=== PATIENT | female | born 1950 | race Caucasian/White ===

== ENCOUNTER 2022-10-27 14:23 | Emergency (ER) | payer MEDICARE, OTHER, SELFPAY ==
[2022-10-27 14:39] VITALS: BP 134/70; PULSE 90; RESP 18; TEMP 37.4; O2SAT 95; BMI 27.8
[2022-10-27 15:26] LABS: Appearance Urine Clear (Clear); Bilirubin Urine Negative (Negative); Blood Urine 1+ (Negative); Color Urine Yellow (Yellow); Glucose Urine Negative (Negative); Ketones Urine 1+ (Negative); Leukocyte Esterase Urine Negative (Negative); Nitrite Urine Negative (Negative); Protein Urine Negative (Negative); Urobilinogen Urine 0.2 (0.2-1.0); pH Urine 5.5 (5.0-8.5)
--- NOTE | 2022-10-27 15:53 | ED.FEMALEGU ---
HPI - Female Genitourinary General Time Seen by Provider: 15:53 Date Seen: 10/27/22 Chief complaint: Urogenital Problems, Female Stated complaint: medication reaction/uti Time Seen by Provider: 10/27/22 15:37 Source: patient and RN notes reviewed Mode of arrival: ambulatory Limitations: no limitations History of Present Illness HPI Narrative: This 72-year-old female is coming in with concern of medication side effect an underlying UTI. Patient had a left hip replacement about a week and a half ago through [facility]. She went to [place] this weekend, traveled on Thursday, did get out of the car frequently to ambulate. She started having urinary symptoms with frequency of small amounts and some incontinence. She did not really have dysuria but could feel herself urinating more prominently than what it typically would feel like. She went to an urgent care in [place] yesterday, was given Macrobid/nitrofurantoin to take. She took it yesterday morning, took a dose yesterday evening and then started having severe nausea, did have vomiting. She is had times where she has felt chilled, has ongoing nausea, has had some headache. Has had poor oral intake today due to symptoms. She does not feel it is her pain medicine at all, took this for week and a half prior without any symptoms. She does not have any drug allergies. She is having no abdominal pain, no flank pain. Patient feels her hip is fine, no increased pain, no concerns. Related Data Home Medications Medication Instructions Recorded Confirmed Eliquis 10/27/22 Hydrocodone CP 10/27/22 Zoloft 10/27/22 nitrofurantoin 10/27/22 Previous Rx's Medication Instructions Recorded cephalexin 500 mg tablet 500 mg PO TID #21 tabs 10/27/22 Allergies Allergy/AdvReac Type Severity Reaction Status Date / Time No Known Drug Allergies Allergy Verified 10/27/22 14:44 Review of Systems Status of ROS: Reports: 6 or more systems reviewed and unremarkable except as noted in History and below Exam Const: Vital Signs, click to edit/add: Vital Signs - 24 hr 10/27/22 14:39 Temperature 99.4 F Pulse Rate [Pulse Oximeter] 90 Respiratory Rate 18 Blood Pressure [Ri ght Upper Arm] 134/70 Pulse Oximetry 95 Oxygen Delivery Me thod Room Air Very pleasant 72-year-old female looks like she does not feel well, is lying in the bed in exam room 5, has an emesis bag with her. She looks pale but is alert and interactive, very pleasant. Oropharynx with dry mucosa but no lesions noted. Sclera clear, conjugate gaze, equal pupils. Symmetrical facial function. Lungs are clear to auscultation bilaterally, no tachypnea and no wheezing or crackles. CV regular rate and rhythm no murmur, normal S1 and S2. Abdomen is soft, no rebound or guarding, no organomegaly. She has thickened lower extremities but no significant edema, they look symmetric. Documenting provider has reviewed patient's vital signs: yes Course Course Hospital Course: Patient did get a bladder scan after voiding and there is no evidence of any urinary retention. Urinalysis was appropriately collected by staff, awaiting lab evaluation. After seeing the patient, do think she needs blood work, will stab lotion IV. Did do worry that she has got a complicated UTI. Will consider other etiologies as well if needed. I will be getting blood cultures on her as well. Initiate Rocephin IV once labs collected for presumed UTI. Reevaluation(s) Time of Reevaluation #1: 18:09 Reevaluation #1: Patient was resting, upon awakening she actually states she is feeling a bit better. Her is now here. We reviewed her elevated white blood count. Her nausea is improved. We reviewed her lower potassium likely from decreased oral intake and vomiting. She does think she can take oral potassium. She did receive IV Rocephin. We discussed hospitalization with observation versus allowing her to go home. Her reports they live close, it sounds as if they would feel more comfortable going home which I think is reasonable. We will not have her take further nitrofurantoin, will initiate Keflex tomorrow. Will make sure she can take oral potassium here. Vital Signs Vital signs: Initial Vital Signs Temperature 99.4 F 10/27/22 14:39 Temperature Source Temporal Artery Scan 10/27/22 14:39 Pulse Rate 90 10/27/22 14:39 Respiratory Rate 18 10/27/22 14:39 Blood Pressure 134/70 10/27/22 14:39 Blood Pressure Mean 91 10/27/22 14:39 Blood Pressure Position Sitting 10/27/22 14:39 Pulse Oximetry 95 10/27/22 14:39 Oxygen Delivery Method Room Air 10/27/22 14:39 Vital Signs Temperature 99.4 F 10/27/22 14:39 Pulse Rate 90 10/27/22 14:39 Respiratory Rate 18 10/27/22 14:39 Blood Pressure 134/70 10/27/22 14:39 Pulse Oximetry 95 10/27/22 14:39 Oxygen Delivery Method Room Air 10/27/22 14:39 Temperature 99.4 F 10/27/22 14:39 Pulse Rate 90 10/27/22 14:39 Respiratory Rate 18 10/27/22 14:39 Blood Pressure 134/70 10/27/22 14:39 Pulse Oximetry 95 10/27/22 14:39 Oxygen Delivery Method Room Air 10/27/22 14:39 MDM - Female Genitourinary Lab Data Attestation: I reviewed the patient's lab results. Labs: Lab Results 10/27/22 10/27/22 Range/Units 15:20 16:25 WBC 15.24 H (4.50-11.00) K/uL RBC 3.22 L (4.00-5.20) m/uL Hgb 10.0 L (12.0-16.0) gm/dL Hct 30.4 L (33.0-51.0) % MCV 94 (80-100) fL MCH 31 (26-34) pg MCHC 33 (32-36) gm/dL RDW Coeff of Pilo 12.2 (11.5-15.5) % Plt Count 248 (140-440) K/uL Neut % (Auto) 93.3 H (42.0-72.0) % Lymph % (Auto) 3.3 L (20-44) % Coos % (Auto) 3.0 (0.0-11.0) % Eos % (Auto) 0.0 (0.0-7.0) % Baso % (Auto) 0.1 (0.0-3.0) % Neut # (Auto) 14.20 H (1.7-7.0) K/uL Lymph # (Auto) 0.50 L (0.90-2.90) K/uL Coos # (Auto) 0.50 (0.00-0.90) K/UL Eos # (Auto) 0.00 (0.00-0.50) K/uL Baso # (Auto) 0.00 (0.00-0.30) K/uL Abs Immat Gran (auto) 0.00 (0.00-0.30) K/uL Imm/Tot Granulo (auto) 0.3 % Sodium 135 (135-149) mmol/L Potassium 3.0 L (3.6-5.1) mmol/L Chloride 100 (96-114) mmol/L Carbon Dioxide 27 (20-32) mmol/L Anion Gap 8 (7-15) mEq/L BUN 15 (7-30) mg/dL Creatinine 0.6 (0.5-1.5) mg/dL Estimated Creat Clear 49.00 Estimated GFR 97 ml/min Glucose 117 H (60-115) mg/dL Lactate 1.3 (0.5-1.9) mmol/L Calcium 8.7 (8.4-10.6) mg/dL Total Bilirubin 1.1 (0.1-1.5) mg/dL AST 35 (12-35) U/L ALT 31 (4-35) U/L Alkaline Phosphatase 84 (40-150) U/L C-Reactive Protein 7.4 H (0.5-1.0) mg/dL Total Protein 7.2 (6.0-8.3) g/dL Albumin 3.8 (3.3-5.0) g/dL Urine Color Yellow (Yellow) Urine Appearance Clear (Clear) Urine pH 5.5 (5.0-8.5) Ur Specific [place] 1.020 (1.000-1.030) Urine Protein Negative (Negative) Urine Glucose (UA) Negative (Negative) Urine Ketones 1+ A (Negative) Urine Blood 1+ A (Negative) Urine Nitrite Negative (Negative) Urine Bilirubin Negative (Negative) Urine Urobilinogen 0.2 (0.2-1.0) Ur Leukocyte Esterase Negative (Negative) Urine RBC 0-2 (0-2) Urine WBC 5-10 A (0-5) Ur Squamous Epith Cells None (None-Few) Urine Bacteria Moderate A (None) Critical Care Time Critical Care Time Critical Care Time: No Discharge Plan Discharge Clinical Impression: Urinary tract infection, Medication adverse effect, Hypokalemia Patient Disposition: Home, Self-Care Condition: Stable Instructions: Potassium Content of Foods List (ED), Hypokalemia (ED), Urinary Tract Infection in Older Adults (ED) Additional Instructions: Start oral antibiotics in the morning, take as prescribed. Do not take any further nitrofurantoin, in prescribing a new antibiotic which will be Keflex or cephalexin. Drink small frequent sips of fluids to stay hydrated, also need to try to increase some potassium in your diet. If you do have further vomiting, develops abdominal pain, have fever or other new concerns, we do need you to be re-evaluated. Activity Detail: Follow activity recommendations and restrictions as per your surgeon. Prescriptions: New cephalexin 500 mg tablet 500 mg PO TID Qty: 21 0RF No Action Eliquis Zoloft Hydrocodone CP nitrofurantoin Stand Alone Forms: Figment Info Instructions
[2022-10-27 15:56] LABS: Bacteria Urine Moderate; RBC Urine 0-2 (0-2)
[2022-10-27 16:31] LABS: Lactate* 1.3 mmol/L (0.5-1.9)
[2022-10-27 16:33] LABS: Basophils Percent Auto 0.1 % (0.0-3.0); Hematocrit 30.4 % (33.0-51.0); Immature Granulocytes Pct Auto 0.3 %; Lymphocytes Percent Auto 3.3 % (20-44); Mean Corpuscular HGB Conc 33 gm/dL (32-36); Mean Corpuscular Hemoglobin 31 pg (26-34); Mean Corpuscular Volume 94 fL (80-100); Neutrophils Percent Auto 93.3 % (42.0-72.0); Platelet Count* 248 K/uL (140-440); RDW Coefficient of Variation % 12.2 % (11.5-15.5); Red Blood Count 3.22 m/uL (4.00-5.20); White Blood Count* 15.24 K/uL (4.50-11.00)
[2022-10-27 16:36] LABS: Slide Review Reflex No
[2022-10-27] MEDS: ONDANSETRON 2 MG/ML inj 4 MG IVP (16:53)
[2022-10-27] MEDS: cefTRIAXone 1 GM in 0.9 % SODIUM CHLORIDE Mini-bag 100 ML IVPB (16:53)
[2022-10-27] MEDS: 0.9 % SODIUM CHLORIDE 1000 ml 1,000 ML 500 ML IV (16:53)
[2022-10-27 17:00] LABS: Albumin* 3.8 g/dL (3.3-5.0); Chloride* 100 mmol/L (96-114)
[2022-10-27 17:01] LABS: Sodium* 135 mmol/L (135-149)
[2022-10-27 17:03] LABS: Bilirubin Total* 1.1 mg/dL (0.1-1.5); Creatinine* 0.6 mg/dL (0.5-1.5); Estimated Glomerular Filt Rate 97 ml/min
[2022-10-27 17:04] LABS: Alanine Aminotransferase* 31 U/L (4-35); Alkaline Phosphatase* 84 U/L (40-150); Anion Gap 8 mEq/L (7-15); Aspartate Amino Transferase* 35 U/L (12-35); Blood Urea Nitrogen* 15 mg/dL (7-30); Calcium* 8.7 mg/dL (8.4-10.6); Carbon Dioxide* 27 mmol/L (20-32); Glucose* 117 mg/dL (60-115); Total Protein* 7.2 g/dL (6.0-8.3)
[2022-10-27 17:06] LABS: C Reactive Protein* 7.4 mg/dL (0.5-1.0)
[2022-10-27] MEDS: POTASSIUM BICARB 25 MEQ EFFERVESCENT TAB 50 MEQ PO (18:17)
== END 2022-10-27 19:08 | disposition home or self-care (01) ==
PROVIDERS: Emergency Provider Family Medicine; PCP Internal Medicine
DX: N39.0 Urinary tract infection, site not specified (principal); E87.6 Hypokalemia; T37.8X5A Adverse effect of other specified systemic anti-infectives and antiparasitics, initial encounter
CPT/HCPCS: 36415; 80053; 81001; 83605; 85025; 86140; 87040; 87086; 94761; 96365; 96375; 99284; A9270; J0696; J2405; J7030